=== PATIENT | male | born 1940 | race Caucasian/White ===

== ENCOUNTER 2017-09-14 09:38 | Inpatient (IN) | payer OTHER ==
[~2017-09-14] VITALS: Ht 185.4 cm; Wt 106.6 kg
[~2017-09-14 09:38] MED LIST: AMIODARONE HCL200 MG PO; ASPIRIN325 MG PO; ATORVASTATIN CA20 MG PO; CALCIUM 500+D1 EACH PO; CLOPIDOGREL75 MG PO; FENOFIBRATE145 MG PO; FISH OIL 1,0001 EAC2 PO; GARLIC1000 MG PO; LANTUS 3ML100 UNITS/ SC; LEVOTHYROXINE50 MCG PO; LISINOPRIL10 MG PO; METOPROLOL SUCC50 MG PO; MULTIVITAMINS1 EAC7 PO; TORSEMIDE10 MG PO
--- NOTE | 2017-09-14 10:54 | Diagnostic Imaging Report ---
Exam: Head CT without contrast History: Dizziness, fall x2 days ago Comparison studies: None Technique: Axial images were obtained from the skull base to the vertex. Coronal and sagittal images reconstructed from the axial data. Intravenous contrast: None Findings: Scalp: No abnormalities. Bones: No fractures, blastic or lytic lesions. Brain sulci: Mildly prominent, but age appropriate. Ventricles: Normal in size and configuration. No hydrocephalus. Extra-axial spaces: No masses, no fluid collection. Parenchyma: No mass, acute hemorrhage or acute or chronic cortical vascular insults. A few scattered and mildly confluent ill-defined hypodensities in the supratentorial white matter are nonspecific but most compatible with chronic small vessel ischemic changes. Sellar/suprasellar region: No abnormalities. Craniocervical junction: Patent foramen magnum. No Chiari one malformation. Incidental findings: Atherosclerotic calcifications in the carotid siphons an in the intradural vertebral arteries. Punctate calcified drusen at the right optic nerve insertion. IMPRESSION: 1. No acute intracranial abnormalities. 2. Moderate supratentorial chronic microvascular ischemic changes. Signed by: Dr. Ravi Estrella M.D. on 09/14/2017 10:51 AM
[2017-09-14 11:24] LABS: BASOPHILS # (AUTO) 0.1 (0.0-0.1); BASOPHILS % 0.9 % (0.0-1.0); EOSINOPHILS # (AUTO) 0.2 (0.0-0.4); HEMATOCRIT 44.6 % (38.2-49.6); HEMOGLOBIN 15.3 g/dL (14.0-18.0); LYMPHOCYTES # (AUTO) 1.1 (1.0-3.2); LYMPHOCYTES % 11.1 % (18.0-39.1); MEAN CORPUSCULAR HEMOGLOBIN 29.5 pg (28-32); MEAN CORPUSCULAR HGB CONC 34.3 g/dL (31-35); MEAN CORPUSCULAR VOLUME 85.9 fL (81-99); MONOCYTES % 9.6 % (4.4-11.3); NEUTROPHILS # (AUTO) 7.5 (2.1-6.9); NEUTROPHILS % 75.5 % (38.7-80.0); PLATELET COUNT 329 x10e3/uL (140-360); RED BLOOD COUNT 5.19 x10e6/uL (4.3-5.7); RED CELL DISTRIBUTION WIDTH 17.3 % (11.7-14.4)
[2017-09-14 11:39] LABS: KETONES,URINE NEGATIVE (NEGATIVE); LEUKOCYTE ESTERASE ,URINE NEGATIVE (NEGATIVE); NITRITE,URINE NEGATIVE (NEGATIVE); PROTEIN,URINE DIPSTICK NEGATIVE (NEGATIVE); URINE UROBILINOGEN 0.2 mg/dL (0.2 - 1)
[2017-09-14 11:46] LABS: ANION GAP 14.8 mmol/L (8-16); BILIRUBIN,URINE 2+ (NEGATIVE); CALCIUM 9.9 mg/dL (8.4-10.2); CREATININE, SERUM 1.85 mg/dL (0.72-1.25)
[2017-09-14 11:47] LABS: POTASSIUM 2.8 mmol/L (3.5-5.1)
[2017-09-14] MEDS ORDERED: POTASSIUM CHLORIDE 20MEQ/100ML 200 ML IV ONE (12:00)
[2017-09-14] MEDS ORDERED: DIATRIZOATE MEGL/DIATRIZOA SOD 30 ML BTL PO ONE (12:04)
[2017-09-14 12:09] LABS: CLARITY,URINE SL CLOUDY (CLEAR); COLOR,URINE AMBER (YELLOW)
[2017-09-14 12:10] LABS: EPITHELIAL CELLS,URINE RARE /LPF; WBC,URINE (MAN) 0-5 /HPF (0-5)
[2017-09-14 14:30] LABS: ALBUMIN 3.1 g/dL (3.5-5.0)
[2017-09-14 14:34] LABS: BILIRUBIN,DIRECT 11.7 mg/dL (0.0-5.0)
--- NOTE | 2017-09-14 15:22 | Diagnostic Imaging Report ---
PROCEDURE: CT ABDOMEN AND PELVIS WITHOUT CONTRAST TECHNIQUE: The abdomen and pelvis were scanned utilizing a multidetector helical scanner from the diaphragm to the lesser trochanter after the oral administration of Gastrografin/water. No IV contrast. Coronal and sagittal multiplanar reformations were obtained. COMPARISON: None. INDICATIONS: SEVERE JAUNDICE FINDINGS: ABSENCE OF INTRAVENOUS CONTRAST DECREASES SENSITIVITY FOR DETECTION OF FOCAL LESIONS AND VASCULAR PATHOLOGY. LOWER THORAX: Heart size at the upper limits of normal. There are atherosclerotic calcifications of the aorta and coronary arteries. HEPATOBILIARY: There is moderate intrahepatic biliary ductal dilatation, left greater than right, with atrophy of the left hepatic lobe. The distal CBD appears normal in caliber. The gallbladder is collapsed. SPLEEN: No splenomegaly. PANCREAS: No focal masses or ductal dilatation. ADRENALS: No adrenal nodules. KIDNEYS/URETERS: The right kidney is atrophic with respect to the left. There are multiple foci of cortical scarring in both kidneys. There are numerous punctate, nonobstructing stones and medullary calcifications in the right kidney. There are also nonobstructing stones in the left kidney which measure up to 4 mm. No ureteral stones No hydronephrosis. PELVIC ORGANS/BLADDER: The prostate gland is mildly enlarged with coarse calcifications. The bladder is unremarkable. PERITONEUM / RETROPERITONEUM: No free air or fluid. LYMPH NODES: No lymphadenopathy. VESSELS: Severe atherosclerotic calcifications of the aorta and its branches. The infrarenal aorta is ectatic, measuring up to 3.7 cm in transverse dimension (series 2, image 52). The right common iliac artery is also ectatic, measuring 2.4 cm in AP dimension (image 66). GI TRACT: No distention or wall thickening. Focal thickening of the gastric antrum (series 2, image 29) is probably an artifact related to peristalsis. The appendix is normal. BONES AND SOFT TISSUES: Multilevel degenerative changes of the thoracic and lumbar spine. IMPRESSION: 1. Moderate intrahepatic biliary ductal dilatation, left greater than right, with chronic atrophy of the left hepatic lobe. Suspect malignant or inflammatory stricture in the common hepatic duct. Recommend MRI/MRCP (with and without contrast) for further evaluation. 2. Bilateral nonobstructing renal stones and probable medullary nephrocalcinosis in the right kidney. There is scarring of both kidneys with right renal atrophy. 3. Severe atherosclerosis of the aorta and its branches with ectasia of the infrarenal aorta right common iliac artery as described above. Dictated by: Michael Lozano M.D. on 09/14/2017 at 15:31 Electronically approved by: Michael Lozano M.D. on 09/14/2017 at 15:31
[2017-09-14] MEDS: POTASSIUM CHLORIDE 20MEQ/100ML 200 ML IV ONE ×2 (15:31→15:32)
--- NOTE | 2017-09-14 17:29 | Diagnostic Imaging Report ---
PROCEDURE:US GALLBLADDER COMPARISON:Same day CT of the abdomen INDICATIONS:JAUNDICE TECHNIQUE: Chiu-scale and color doppler transverse and longitudinal images of the right upper quadrant of the abdomen were obtained. FINDINGS: Liver: 15.6 cm in right mid-clavicular line. Normal echogenicity. Moderate intrahepatic biliary dilatation. No masses. Main portal vein: 0.8 cm Gallbladder: Not well visualized despite reattempted scan after the patient fasted for 7 hours. Common Bile Duct: 0.8 cm Sonographic Santillan's sign: Negative Right kidney: 7.3 cm. Increased echogenicity. No solid masses or hydronephrosis. Punctate nonobstructing stones are visualized. Pancreas: The visualized portions are unremarkable. Inferior vena cava: Patent Aorta: Within normal limits Ascites: None in the right upper quadrant of the abdomen. CONCLUSION: 1. Despite reattempted scan after patient fasting, the gallbladder was not well-seen and may be contracted. 2. Intrahepatic biliary dilatation, as demonstrated on same day CT of the abdomen. The source of obstruction is not identified on this examination. 3. Atrophic right kidney with small, nonobstructing stones. Dictated by: Michael Lozano M.D. on 09/14/2017 at 17:37 Electronically approved by: Michael Lozano M.D. on 09/14/2017 at 17:37
[2017-09-14] MEDS ORDERED: ONDANSETRON HCL INJ 2 MG/ML VIAL IV PRN (18:15)
[2017-09-14] MEDS ORDERED: PIPER-TAZ 3.375 GM 50 ML IV ONE (18:15)
[2017-09-14] MEDS ORDERED: SODIUM CHLORIDE FLUSH 10 ML SYR INJ PRN (18:15)
[2017-09-14] MEDS: SODIUM CHLORIDE 0.9% 1000ML 1,000 ML IV SCH (19:52)
[2017-09-14 22:19] VITALS: BP 117/74
[2017-09-14 23:27] VITALS: BP 117/74
[2017-09-15] VITALS (8 sets, daily range): BP systolic 116–138; BP diastolic 72–87
[2017-09-15] MEDS: SODIUM CHLORIDE 0.9% 1000ML 1,000 ML IV SCH (02:04)
[2017-09-15] MEDS ORDERED: DEXTROSE 5%/0.9% SOD CHL 1,000 ML IV SCH (08:00)
[2017-09-15 09:29] LABS: BASOPHILS # (AUTO) 0.1 (0.0-0.1); BASOPHILS % 1.5 % (0.0-1.0); EOSINOPHILS # (AUTO) 0.3 (0.0-0.4); EOSINOPHILS % 4.2 % (0.0-6.0); HEMATOCRIT 39.7 % (38.2-49.6); HEMOGLOBIN 13.6 g/dL (14.0-18.0); LYMPHOCYTES # (AUTO) 0.9 (1.0-3.2); MEAN CORPUSCULAR HEMOGLOBIN 29.4 pg (28-32); MEAN CORPUSCULAR HGB CONC 34.3 g/dL (31-35); MEAN CORPUSCULAR VOLUME 85.9 fL (81-99); MONOCYTES # (AUTO) 0.8 (0.2-0.8); MONOCYTES % 13.1 % (4.4-11.3); NEUTROPHILS % 65.9 % (38.7-80.0); PLATELET COUNT 260 x10e3/uL (140-360); RED BLOOD COUNT 4.62 x10e6/uL (4.3-5.7); RED CELL DISTRIBUTION WIDTH 17.4 % (11.7-14.4)
[2017-09-15 09:34] LABS: INR 0.93; PROTHROMBIN TIME 12.9 seconds (11.9-14.5)
[2017-09-15 09:35] LABS: PARTIAL THROMBOPLASTIN TIME 28.1 seconds (23.8-35.5)
[2017-09-15 09:44] LABS: ALBUMIN 2.5 g/dL (3.5-5.0); ALBUMIN/GLOBULIN RATIO 0.8 (0.8-2.0); ANION GAP 12.8 mmol/L (8-16); CALCIUM 9.3 mg/dL (8.4-10.2); CREATININE, SERUM 1.53 mg/dL (0.72-1.25); MAGNESIUM 1.9 MG/DL (1.3-2.1); PHOSPHORUS 2.8 MG/DL (2.3-4.7)
[2017-09-15 09:53] LABS: POTASSIUM 2.8 mmol/L (3.5-5.1)
[2017-09-15] MEDS ORDERED: GADOBENATE DIMEGLUMINE 1 ML IV ONE (10:14)
[2017-09-15] MEDS ORDERED: DEXTROSE 50% SYRINGE 50 ML IV PRN (14:30)
[2017-09-15] MEDS: SOD CHL 0.45%/POT CHL 20MEQ 1,000 ML IV SCH (14:55)
[2017-09-15] MEDS ORDERED: POTASSIUM CHLORIDE 20 MEQ TAB CR PO ONE (15:30)
[2017-09-15] MEDS: INSULIN LISPRO 100 UNIT/1 ML 3ML VIAL SQ SCH ×2 (16:30→21:00)
--- NOTE | 2017-09-15 17:56 | History and Physical ---
CHIEF COMPLAINT: Jaundice. PCP: Dr. Hank Lafleur The patient is a 76-year-old male who came in with significant jaundice. Bilirubin of 15.9. The patient is admitted. He did not have any abdominal pain. No nausea or vomiting. PAST MEDICAL HISTORY: Diabetes, type 2, hypertension and cardiac arrhythmia. PAST SURGICAL HISTORY: Noncontributory. SOCIAL HISTORY: Patient does not smoke or use alcohol. He is retired. ALLERGIES: HAZELNUTS. HOME MEDICATIONS: List reviewed. REVIEW OF SYSTEMS: As mentioned above. There is jaundice. No focal deficit. No pain. No nausea or vomiting. PHYSICAL EXAMINATION VITAL SIGNS: Temperature is 98, blood pressure 138/78, pulse rate 71, respirations 18. GENERAL: Patient is not in acute distress. He is awake and jaundiced. HEENT: Normocephalic, atraumatic. Pupils are reactive. Patient is jaundiced. NECK: Grossly supple. PULMONARY: Clear. CARDIOVASCULAR: Regular rate and rhythm. ABDOMEN: Soft. EXTREMITIES: No cyanosis or edema. NEUROLOGIC: No focal deficit. LABORATORY: Sodium is 142, potassium 2.8, chloride 102, bicarb 30, BUN 27, creatinine 1.5, glucose 81. WBC 6.1, hemoglobin 13.6, hematocrit 39, and platelets 260,000. INR is 0.93. AST is 256, ALT is 244, total bilirubin is 15.9, alkaline phosphatase is 507. IMPRESSION 1. Painless obstructive jaundice. 2. Multiple baseline problems. PLAN: MRCP. Antibiotics. IV fluids. Electrolyte replacement. Insulin sliding scale coverage. Home medications. Will hold off on most of the patient's home medication except for insulin. Job#: [id number] [place]
[2017-09-15] MEDS: PIPER-TAZ 3.375 GM 50 ML IV SCH (21:56)
[2017-09-15] MEDS: INSULIN DETEMIR 100 UNIT/ML PEN SQ SCH (22:52)
[2017-09-16] VITALS (7 sets, daily range): BP systolic 126–147; BP diastolic 81–92
[2017-09-16] MEDS: SOD CHL 0.45%/POT CHL 20MEQ 1,000 ML IV SCH ×3 (05:08→21:19)
[2017-09-16] MEDS: PIPER-TAZ 3.375 GM 50 ML IV SCH ×3 (05:12→21:20)
[2017-09-16] MEDS: LEVOTHYROXINE SODIUM 25 MCG TABLET PO SCH (05:12)
[2017-09-16] MEDS: INSULIN LISPRO 100 UNIT/1 ML 3ML VIAL SQ SCH ×4 (07:30→21:00)
--- NOTE | 2017-09-16 07:33 | Consultation ---
DATE OF CONSULTATION: September 15, 2017 GASTROENTEROLOGY CONSULTATION REASON FOR CONSULTATION: Jaundice. The patient is a pleasant 76-year-old man who was in his usual state of health, who started having dizzy spells a week ago, blacked out and fell on . Sunday he wanted to go to his doctor. No appointment. He went to the emergency room. In the emergency room, he was found to be jaundiced. He denies any abdominal pain except for minor lower abdominal pain. Never had any liver trouble. Never had any gallbladder problems. The patient was admitted for evaluation, and consult for us was placed to evaluate. 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 He does have a history of heart arrhythmias, hyperlipidemia, diabetes, high blood pressure, and some heart failure as well. The patient has been taking amiodarone for many years for his heart arrhythmia as well. MEDICATIONS: Include amiodarone, aspirin, atorvastatin, calcium carbonate, and vitamin D3, clopidogrel, fenofibrate, garlic, insulin glargine which is Lantus, levothyroxine, lisinopril, metoprolol, multivitamin, omega-3, as well as torsemide. ALLERGIES: THE PATIENT DOES NOT HAVE ANY MEDICATION ALLERGY, BUT HE IS ALLERGIC TO HAZELNUTS. The patient does not smoke, drink or use alcohol or drugs. REVIEW OF SYSTEMS: Negative otherwise except for some tightness in the neck that is being evaluated for by his primary physician as well. PHYSICAL EXAMINATION GENERAL: The patient is in no acute distress. VITALS: His temperature is 96.6, blood pressure 138/78, pulse 71, respirations 20, and O2 saturation 98%. HEENT: Normocephalic and atraumatic. Icteric sclerae. Dry oral mucosa. Jaundiced skin. NECK: Supple. A little bit tight in the back, but can move it without any significant issues. HEART: S1 and S2 was normal. LUNGS: Clear to auscultation. ABDOMEN: Soft. No tenderness. No discomfort. Normal bowel sounds. EXTREMITIES: Lower extremities with no edema. NEUROLOGIC: He is alert, oriented and communicative. LABS: White count was 6.12, hemoglobin 13.6, hematocrit 39.7, and platelets of 260,000. Chemistry: Sodium was 142, potassium 2.8, BUN 27, creatinine 1.53. He has got a bilirubin of 15.9, most direct bilirubin. AST of 255, ALT 244, alkaline phosphatase 507, all improved from yesterday. Albumin of 2.5. His cholesterol is high at 287, LDL 252 with a low HDL at 7. The patient's INR is 0.93. Urinalysis was cloudy with positive for bilirubin, rare epithelial cells. No other signs of infection. IMAGING STUDIES: The patient had a CT scan of the abdomen and pelvis that showed moderate infrahepatic biliary ductal dilatation, left greater than right with chronic atrophy of the left hepatic lobe. Suspect malignant or inflammatory stricture of the common hepatic duct. The patient has bilateral nonobstructing renal stone. He has atherosclerosis of the aorta and branches with ectasia of the infrarenal aorta, right common iliac artery as described. The patient had an ultrasound of the gallbladder that showed the gallbladder was not well seen. However, that is an intrahepatic biliary dilatation as seen on the CT scan. The right kidney is atrophic with a small nonobstructing stone. The MRCP has been ordered and done last night. It has not been reported yet. The patient had a CT scan of the brain that showed no acute intracranial abnormality. However, he did have some moderate supratentorial chronic microvascular ischemic changes. ASSESSMENT AND PLAN 1. Fall and blacking out: Cause is not clear. Will defer to the primary team to evaluate that. 2. Jaundice with dilated biliary tree and atrophied left liver lobe as seen on the computerized tomography scan: The magnetic resonance cholangiopancreatography will evaluate that a little bit further. The patient will likely benefit from an endoscopic retrograde cholangiopancreatography depending on what the finding on the magnetic resonance cholangiopancreatography shows. Very likely this atrophy and the ectasia of the biliary tree with dilation of the biliary tree might be likely contributing to the problem. A tumor is concerning in this situation. Will see how things progress with the MRI results, and likely plan for an endoscopic retrograde cholangiopancreatography to be done on Sunday morning. Continue supportive care for now. The patient should be able to tolerate a diet. Will advance as tolerated. Keep him n.p.o. after midnight on Sunday for possible procedure on Sunday. There is elevated liver enzymes. Make sure that we check a hepatitis panel and an ERNESTINE as well for general screening. Job#: [id number] [place]
[2017-09-16 08:35] LABS: ALBUMIN 2.3 g/dL (3.5-5.0); ALBUMIN/GLOBULIN RATIO 0.7 (0.8-2.0); ANION GAP 9.4 mmol/L (8-16); CALCIUM 9.2 mg/dL (8.4-10.2); CREATININE, SERUM 1.45 mg/dL (0.72-1.25); MAGNESIUM 1.8 MG/DL (1.3-2.1); PHOSPHORUS 2.2 MG/DL (2.3-4.7); POTASSIUM 3.4 mmol/L (3.5-5.1)
[2017-09-16 08:41] LABS: BASOPHILS # (AUTO) 0.1 (0.0-0.1); EOSINOPHILS # (AUTO) 0.2 (0.0-0.4); EOSINOPHILS % 3.5 % (0.0-6.0); HEMATOCRIT 36.8 % (38.2-49.6); HEMOGLOBIN 12.8 g/dL (14.0-18.0); LYMPHOCYTES # (AUTO) 0.8 (1.0-3.2); LYMPHOCYTES % 13.2 % (18.0-39.1); MEAN CORPUSCULAR HEMOGLOBIN 30.1 pg (28-32); MEAN CORPUSCULAR HGB CONC 34.8 g/dL (31-35); MEAN CORPUSCULAR VOLUME 86.6 fL (81-99); MONOCYTES # (AUTO) 0.6 (0.2-0.8); MONOCYTES % 10.5 % (4.4-11.3); NEUTROPHILS # (AUTO) 4.2 (2.1-6.9); NEUTROPHILS % 71.1 % (38.7-80.0); PLATELET COUNT 269 x10e3/uL (140-360); RED BLOOD COUNT 4.25 x10e6/uL (4.3-5.7); RED CELL DISTRIBUTION WIDTH 17.7 % (11.7-14.4)
[2017-09-16 08:59] LABS: THYROID STIMULATING HORMONE 0.273 uIU/mL (0.350-4.940)
[2017-09-16] MEDS: METOPROLOL SUCCINATE 50 MG TAB XL PO SCH (09:15)
[2017-09-16] MEDS ORDERED: POTASSIUM CHLORIDE 20 MEQ TAB CR PO ONE (10:30)
[2017-09-16] MEDS: INSULIN DETEMIR 100 UNIT/ML PEN SQ SCH (21:20)
[2017-09-17 00:32] VITALS: BP 157/86
[2017-09-17 01:21] VITALS: BP 147/90
[2017-09-17 05:09] VITALS: BP 158/97
[2017-09-17] MEDS: PIPER-TAZ 3.375 GM 50 ML IV SCH ×3 (05:45→21:25)
[2017-09-17] MEDS: LEVOTHYROXINE SODIUM 25 MCG TABLET PO SCH (05:45)
[2017-09-17] MEDS: SOD CHL 0.45%/POT CHL 20MEQ 1,000 ML IV SCH ×2 (05:46→17:30)
[2017-09-17] MEDS: INSULIN LISPRO 100 UNIT/1 ML 3ML VIAL SQ SCH ×5 (07:30→21:30)
[2017-09-17 07:32] LABS: ALBUMIN 2.2 g/dL (3.5-5.0); ALBUMIN/GLOBULIN RATIO 0.7 (0.8-2.0); ANION GAP 10.7 mmol/L (8-16); CALCIUM 9.1 mg/dL (8.4-10.2); CREATININE, SERUM 1.26 mg/dL (0.72-1.25); POTASSIUM 3.7 mmol/L (3.5-5.1)
[2017-09-17 08:00] VITALS: BP 142/98
[2017-09-17] MEDS ORDERED: IOPAMIDOL 610MG/1ML 300 MG/ML VIAL IV ONE (08:31)
[2017-09-17] MEDS: METOPROLOL SUCCINATE 50 MG TAB XL PO SCH ×2 (09:00→13:45)
--- NOTE | 2017-09-17 12:06 | Diagnostic Imaging Report ---
EXAM: MRI MRCP [facility] DATE: 09/15/2017 6:11 PM INDICATION: Jaundice COMPARISON: CT dated 09/14/2017 TECHNIQUE: Multi planar multi sequential images of the abdomen were obtained without and with administration of 20 cc of MultiHance. MRCP series included. FINDINGS: Lower thorax: Cardiomegaly. No no T2 hyperintense or arterially enhancing hepatic lesion. Atrophic left hepatic lobe with moderate to severe intrahepatic biliary dilatation, left lobe more than right. There is abrupt cut off of the central biliary ducts at marva hepatis. Gallbladder is not visualized. Spleen is unremarkable. No pancreatic mass. No pancreatic ductal dilatation. No adrenal nodules. Atrophic right kidney with multifocal areas of cortical thinning/scarring. There is also scarring of the left midpole. No hydronephrosis. Tiny right renal cysts. Aneurysmal dilatation of infrarenal abdominal aorta measuring 3.6 cm. Bowel loops are unremarkable. No evidence of bowel obstruction. Normal appendix. IMPRESSION: 1. Moderate intrahepatic biliary dilatation with abrupt cut off of the central biliary ducts at marva hepatis without definite focal mass or choledocholithiasis. Recommend correlation with ERCP or endoscopic ultrasound. 2. Infrarenal abdominal aortic aneurysm. 3. Atrophic right kidney. Signed by: Dr. Brandon Adan MD on 09/17/2017 12:03 PM
[2017-09-17] MEDS ORDERED: PROPOFOL IV EMULSION 10 MG/ML 20 ML VIAL ONE (14:08)
[2017-09-17] MEDS ORDERED: ACETAMINOPHEN 325 MG TAB PO PRN (15:45)
[2017-09-17] MEDS ORDERED: MORPHINE SULFATE 4 MG/ML SYR IV PRN (15:45)
--- NOTE | 2017-09-17 16:32 | Diagnostic Imaging Report ---
PROCEDURE:ERCP TO BE READ INDICATION:Jaundice Fluoroscopy time: 1 min 55 sec Cumulative air kerma : 29.64 mGy CONCLUSION: Fluoroscopy provided during ERCP procedure without presence of radiologist. Please refer to the GI report for full discussion and impression. Dictated by: Brandon Adan M.D. on 09/17/2017 at 16:40 Electronically approved by: Brandon Adan M.D. on 09/17/2017 at 16:40
[2017-09-17] MEDS ORDERED: MIDAZOLAM HCL 2 MG/2 ML VIAL ONE (18:51)
[2017-09-17] MEDS ORDERED: FENTANYL CITRATE/PF 100MCG/2 ML INJ ONE (18:51)
[2017-09-17 20:00] VITALS: BP 150/98
[2017-09-17] MEDS: INSULIN DETEMIR 100 UNIT/ML PEN SQ SCH (21:30)
[2017-09-18] VITALS: BP 144/90
[2017-09-18 00:58] VITALS: BP 144/90
[2017-09-18] MEDS: SOD CHL 0.45%/POT CHL 20MEQ 1,000 ML IV SCH ×2 (02:30→05:48)
[2017-09-18 04:00] VITALS: BP 153/85
[2017-09-18] MEDS: PIPER-TAZ 3.375 GM 50 ML IV SCH (05:48)
[2017-09-18] MEDS: LEVOTHYROXINE SODIUM 25 MCG TABLET PO SCH (05:48)
[2017-09-18 07:30] VITALS: BP 156/97
[2017-09-18] MEDS: INSULIN LISPRO 100 UNIT/1 ML 3ML VIAL SQ SCH (07:30)
[2017-09-18 08:09] VITALS: BP 156/97
[2017-09-18 08:58] LABS: ALBUMIN 2.4 g/dL (3.5-5.0)
[2017-09-18 09:00] LABS: BILIRUBIN,DIRECT 11.3 mg/dL (0.0-5.0)
[2017-09-18] MEDS: METOPROLOL SUCCINATE 50 MG TAB XL PO SCH (09:00)
== END 2017-09-18 11:38 | disposition home or self-care (01) | DRG 376 ==
LOC: ER 09:38 → ERHOLD 20:30 → MED/SURG3 20:43
PROVIDERS: ADMIT Internal Medicine; ATTEND Internal Medicine
PROC: 0F998ZX Drainage of Common Bile Duct, Via Natural or Artificial Opening Endoscopic, Diagnostic (ICD-10-PCS; 2017-09-17)
PROC: 0F798DZ Dilation of Common Bile Duct with Intraluminal Device, Via Natural or Artificial Opening Endoscopic (ICD-10-PCS; principal; 2017-09-17 11:00)
DX: D49.0 Neoplasm of unspecified behavior of digestive system (principal); E11.9 Type 2 diabetes mellitus without complications; R42 Dizziness and giddiness; R74.0 Nonspecific elevation of levels of transaminase and lactic acid dehydrogenase [LDH]; S00.80XA Unspecified superficial injury of other part of head, initial encounter; W18.2XXA Fall in (into) shower or empty bathtub, initial encounter; I49.9 Cardiac arrhythmia, unspecified
CPT/HCPCS: 36415; 43274; 70450; 74176; 74183; 74328; 76705; 80048; 80053; 80061; 80076; 81001; 82105; 82150; 82378; 82607; 82948; 82977; 83036; 83690; 83735; 84100; 84443; 85025; 85610; 85730; 86301; 86644; 86645; 87086; 88104; 88112; 88305; 93005; 96361; 99284; C2625; J2250; J2543; J3480; J7030; J7042

== ENCOUNTER → 2018-02-01 | Outpatient (CLI) | payer OTHER ==
[~2018-02-01] MED LIST changes: +GADOBENATE DIMEGLUMINE 1 ML IV ONE; +SODIUM CHLORIDE 0.9% 50ML 50 ML ONE
[2018-02-01 11:33] LABS: BLOOD UREA NITROGEN 22 mg/dL (7-26); BUN/CREATININE RATIO 20 (6-25); EST GLOMERULAR FILTRATION RATE > 60 ML/MIN (60-)
--- NOTE | 2018-02-01 14:56 | Diagnostic Imaging Report ---
History: Atrial fibrillation Comparison studies: CT head 09/14/2017 Technique: 3-D dynamic postcontrast Contrast: 20 cc ofMultiHance. Findings: Percentage of stenosis will be based on the NASCET criteria. Aortic arch: No flow abnormalities. Common origin of the radiocephalic chronic and left common carotid artery. Common carotid arteries: No flow abnormalities. Right carotid bulb: No flow limiting abnormalities. Less than 10% stenosis at the bulb. Left carotid bulb: No flow limiting abnormalities. Less than 10% stenosis at the bulb. Internal carotid arteries: No flow abnormalities. Vertebral arteries: Dominant left without flow abnormalities. Multisegment more than 70% narrowing of the right cervical vertebral artery. 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 No other hemodynamically significant stenosis of the neck arteries. Signed by: DR Brian Garcia M.D. on 02/01/2018 2:53 PM
== END | disposition home or self-care (01) ==
LOC: MRI 10:43
DX: I48.2 Chronic atrial fibrillation (principal); I65.01 Occlusion and stenosis of right vertebral artery; I10 Essential (primary) hypertension; R55 Syncope and collapse; I71.4 Abdominal aortic aneurysm, without rupture; I25.10 Atherosclerotic heart disease of native coronary artery without angina pectoris
CPT/HCPCS: 36415; 70549; 82565; 84520